=== PATIENT | male | born 1995 | race Caucasian/White ===

== ENCOUNTER 2016-11-12 11:55 | Inpatient (IN) | payer MEDICAID, OTHER ==
[~2016-11-12] VITALS: Ht 185.4 cm; Wt 78.5 kg
[~2016-11-12 11:55] MED LIST: Z.0.NO CURRENT MEDS
[2016-11-12 12:04] VITALS: BP 119/74; PULSE 72; RESP 16; TEMP 98.6; O2SAT 100
--- NOTE | 2016-11-12 12:11 | PD ---
HPI Chief Complaint: CORBY ACTED BY [employer] Time Seen by Provider: 12:02 Travel History International Travel<30 days: No Contact w/Intl Traveler<30days: No History of Present Illness HPI PATIENT WAS BROUGHT IN BY [employer] POLICE, DUE TO PATIENT MAKING THREATS TO SLIT HIS THROAT AND THAT HE WANTED TO DO THAT LAST NIGHT AND AGAIN TODAY...CORBY ACTED BY PO POLICE [facility] Past Medical History ADHD: No Cancer: No Cardiovascular Problems: No Diabetes: No Migraines: No Seizures: No Thyroid Disease: No Ulcer: No Social History Alcohol Use: Yes Tobacco Use: Yes Substance Use: No (DENIES) Allergies-Medications (Allergen,Severity, Reaction): Coded Allergies: No Known Allergies (Unverified , 10/06/12) Reported Meds & Prescriptions Reported Meds & Active Scripts Active Reported No Current Meds (Miscellaneous Medication) Misc Review of Systems Except as stated in HPI: all other systems reviewed are Neg Psychiatric: Positive: Suicidal Ideations Physical Exam Narrative GENERAL: SKIN: Warm and dry. HEAD: Atraumatic. Normocephalic. EYES: Pupils equal and round. No scleral icterus. No injection or drainage. ENT: No nasal bleeding or discharge. Mucous membranes pink and moist. NECK: Trachea midline. No JVD. CARDIOVASCULAR: Regular rate and rhythm. RESPIRATORY: No accessory muscle use. Clear to auscultation. Breath sounds equal bilaterally. GASTROINTESTINAL: Abdomen soft, non-tender, nondistended. Hepatic and splenic margins not palpable. MUSCULOSKELETAL: Extremities without clubbing, cyanosis, or edema. No obvious deformities. NEUROLOGICAL: Awake and alert. No obvious cranial nerve deficits. Motor grossly within normal limits. Five out of 5 muscle strength in the arms and legs. Normal speech. PSYCHIATRIC: DEPRESSED MOOD, SI PRESENT Data Data Last Documented VS Vital Signs Date Time Temp Pulse Resp B/P Pulse Ox O2 Delivery O2 Flow Rate FiO2 11/12/16 12:04 98.6 72 16 119/74 100 Orders Complete Blood Count With Diff (11/12/16 12:03) Comprehensive Metabolic Panel (11/12/16 12:03) Electrocardiogram (11/12/16 12:03) Psych Screen (11/12/16 12:03) Drug Screen, Random Urine (11/12/16 12:03) Alcohol (Ethanol) (11/12/16 12:03) Salicylates (Aspirin) (11/12/16 12:03) Tylenol (Acetaminophen) (11/12/16 12:03) MDM Medical Decision Making Medical Screen Exam Complete: Yes Emergency Medical Condition: Yes Medical Record Reviewed: Yes Differential Diagnosis MED CLEARANCE Narrative Course PATIENT BROUGHT IN BY [employer] POLICE FOR MEDICAL CLEARANCE, OCRBY ACTED DUE TO SI WITH PLAN TO CUT THROAT Diagnosis Primary Impression: Medical clearance for psychiatric admission Marcos Oconnell MD November 12, 2016 12:11
[2016-11-12 12:42] LABS: AUTOMATED NEUTROPHIL # 3.1 TH/MM3 (1.8-7.7); BASOPHIL % 0.5 % (0.0-2.0); EOSINOPHIL % 0.5 % (0.0-4.0); HEMATOCRIT 45.1 % (39.0-51.0); HEMO FLAGS DIFF FINAL; LYMPH % 31.6 % (9.0-44.0); LYMPHOCYTE # 1.7 TH/MM3 (1.0-4.8); MEAN CELL VOLUME 88.1 FL (80.0-100.0); MEAN CORPUSCULAR HEMOGLOBIN 30.2 PG (27.0-34.0); MEAN CORPUSCULAR HGB CONC 34.3 % (32.0-36.0); MONO % 9.1 % (0.0-8.0); NEUT % 58.3 % (16.0-70.0); PLATELET COUNT 188 TH/MM3 (150-450); RED BLOOD COUNT 5.12 MIL/MM3 (4.50-5.90); RED CELL DISTRIBUTION WIDTH 13.4 % (11.6-17.2); WHITE BLOOD COUNT 5.4 TH/MM3 (4.0-11.0)
[2016-11-12 13:08] LABS: ALT (GPT) 15 U/L (12-78); ANION GAP 5 MEQ/L (5-15); AST (GOT) 11 U/L (15-37); BICARBONATE 27.1 MEQ/L (21.0-32.0); BLOOD UREA NITROGEN 8 MG/DL (7-18); CHLORIDE 107 MEQ/L (98-107); GLOMERULAR FILTRATION RATE 120 ML/MIN (>89); POTASSIUM 3.9 MEQ/L (3.5-5.1); SODIUM (NA) 139 MEQ/L (136-145)
[2016-11-12 13:10] LABS: ACETAMINOPHEN LESS THAN 2.0 MCG/ML (10.0-30.0); ALKALINE PHOSPHATASE 58 U/L (45-117); TOTAL BILIRUBIN ADULT 1.3 MG/DL (0.2-1.0)
[2016-11-12 14:50] LABS: AMPHETAMINE, URINE NEG (NEG); BARBITURATES, URINE NEG (NEG); COCAINE, URINE NEG (NEG)
[2016-11-12 18:56] VITALS: BP 117/69; PULSE 56; RESP 16; O2SAT 100
[2016-11-12 22:00] VITALS: BP 123/75; PULSE 67; RESP 18; TEMP 98.6; O2SAT 97
[2016-11-13 02:35] VITALS: BP 112/59; PULSE 71; RESP 18; TEMP 98.6; O2SAT 99
[2016-11-13 06:00] VITALS: BP 111/73; PULSE 50; RESP 18; O2SAT 98
[2016-11-13] MEDS ORDERED: MAGNESIUM HYDROXIDE SUSP 30 ML CUP PO PRN ×2 (09:00→14:30)
[2016-11-13] MEDS ORDERED: LORazepam 1 MG TAB PO PRN (09:00)
[2016-11-13] MEDS ORDERED: ACETAMINOPHEN 325 MG TAB PO PRN ×2 (09:00→14:30)
[2016-11-13] MEDS ORDERED: LORazepam 2 MG/ML VIAL IM PRN ×2 (09:00)
[2016-11-13] MEDS ORDERED: LORazepam 0.5 MG TAB PO PRN (09:00)
[2016-11-13] MEDS: NICOTINE 21 MG/24 HR PATCH T-DERMAL SCH (09:00)
[2016-11-13] MEDS ORDERED: ALUMINUM/MAGNESIUM/SIMETH 30 ML CUP PO PRN ×2 (09:00→14:30)
[2016-11-13 10:43] VITALS: BP 119/64; PULSE 65; RESP 18
[2016-11-13 10:51] VITALS: BP 125/69; PULSE 64; RESP 18; TEMP 98.2; O2SAT 97
[2016-11-13 11:25] VITALS: BP 119/64; TEMP 98
--- NOTE | 2016-11-13 14:46 | HHI.HP ---
Provisional Diagnosis Admission Date November 13, 2016 at 09:06 [place] I. Paranoid schizophrenia F 20.0 Certification of Person's Competence To Provide Express and Informed Consent I have personally examined Sartahk Washburn , a person being served at [facility] on, November 13, 2016 14:34. Express and informed consent means consent voluntarily given in writing, by a competent person, after sufficient explanation and disclosure of the subject matter involved to enable the person to make a knowing and willful decision without any element of force, fraud, deceit, duress, or other form of constraint or coercion. This person is 18 years of age or older, is not now known to be incompetent to consent to treatment with a guardian advocate, and does not have a health care surrogate or proxy currently making medical treatment decisions. I have found this person to be one of the following: [] Competent to provide express and informed consent, as defined above, for voluntary admission to this facility and is competent to provide express and informed consent for treatment. He/she has the consistent capacity to make well reasoned, willful, and knowing decisions concerning his or her medical or mental health treatment. The person fully and consistently understands the purpose of the admission for examination/placement and is fully capable of personally exercising all rights assured under [place] Incompetent to provide express and informed consent to voluntary admission , and this is incompetent to provide express and informed consent to treatment. The person must be transferred to involuntary status and a petition for a guardian advocate filed with the Circuit Court. [] Refusing to provide express and informed consent to voluntary admission but is competent to provide express and informed consent for treatment. The person must be discharged or transferred to involuntary status. Form shall be completed within 24 hours of a person's arrival at the receiving facility and filed in the clinical record of each person: 1. Admitted on a voluntary basis 2. Permitted to provide express and informed consent to his/her own treatment 3. Allowed to transfer from involuntary to voluntary status 4. Prior to permitting a person to consent to his or her own treatment after having been previously found incompetent to consent to treatment. History of Present Illness Capacity: Lacks Capacity HPI Patient 21-year-old male comes here under [place] act by the [facility] [employer] dated 11/12/16 11:25 AM that report reviewed and agreed with initially stating that the patient advised that he wanted to slit his throat told the police detention attendant that he could do it and that he said he could do it last night. Patient seen screened in the ED urine toxicology positive for benzodiazepines. At the present time patient sitting quietly and the day room 2700 nurse Leny present throughout session. Patient called somewhat solidly built male appears about his stated age slowly stirring a melting dish of ice cream. Stating he doesn't know why he is here there is marked thought blocking noted patient's responses are markedly delayed as if responding to internal stimuli. He does reluctantly acknowledge auditory hallucinations of a somewhat threatening scary nature. Patient is vague about past psychiatric history of though he states he did see a psychiatrist and may have been hospitalized in [place] while staying with his mother there. He stated he had been on the Respinol in the past been off of for at least a few weeks or longer. Also of interest patient was seen at this facility by Dr. Ornelas in 2012 then diagnosis of intermittent explosive disorder. Patient denies any alcohol or drug use related to this. Is vague about suicidality denies homicidality. States he lives with his father and his brother and is somewhat conflictual relationship. He also states he just finished 11th grade does not have a GED, denies any physical or sexual abuse. Is vague about mental health issues in his family origin. Denies any medical or surgical problems. At the present time patient meets criteria for involuntary psychiatric hospitalization of the [place] act. I also feel he does not have capacity to sign for the medications thus I'll do a health care surrogate and guardian advocate we will order Resporal 1 mg twice a day to be given with permission of health care surrogate. Will attempt to meet with patient's family for further treatment. Further information about the segment and to start making plans for discharge and referral of the community Review of Systems Constitutional: DENIES: Diaphoretic episodes, Fatigue, Fever, Weight gain, Weight loss, Chills, Dizziness, Change in appetite, Night Sweats Endocrine: DENIES: Heat/cold intolerance, Polydipsia, Polyuria, Polyphagia Eyes: DENIES: Blurred vision, Diplopia, Eye inflammation, Eye pain, Vision loss , Photosensitivity, Double Vision Ears, nose, mouth, throat: DENIES: Tinnitus, Hearing loss, Vertigo, Nasal discharge, Oral lesions, Throat pain, Hoarseness, Ear Pain, Running Nose, Epistaxis, Sinus Pain, Toothache, Odynophagia Respiratory: DENIES: Apneas, Cough, Snoring, Wheezing, Hemoptysis, Sputum production, Shortness of breath Cardiovascular: DENIES: Chest pain, Palpitations, Syncope, Dyspnea on Exertion , PND, Lower Extremity Edema, Orthopnea, Claudication Gastrointestinal: DENIES: Abdominal pain, Black stools, Bloody stools, Constipation, Diarrhea, Nausea, Vomiting, Difficulty Swallowing, Anorexia Genitourinary: DENIES: Sexual dysfunction, Urinary frequency, Urinary incontinence, Urgency, Hematuria, Dysuria, Nocturia, Penile Discharge, Testicular Pain, Testicular Swelling Musculoskeletal: DENIES: Joint pain, Muscle aches, Stiffness, Joint Swelling, Back pain, Neck pain Integumentary: DENIES: Abnormal pigmentation, Nail changes, Pruritus, Rash Hematologic/lymphatic: DENIES: Bruising, Lymphadenopathy Immunologic/allergic: DENIES: Eczema, Urticaria Neurologic: DENIES: Abnormal gait, Headache, Localized weakness, Paresthesias, Seizures, Speech Problems, Tremor, Poor Balance Psychiatric: COMPLAINS OF: Hallucinations, Suicidal Ideation Past Psych History Psychological trauma history Patient denies Violence risk - others (6 mos) Low Violence risk - self (6 mos) Threatening cut throat Substance Abuse History Drugs/Alcohol past 12 months Denies Past Family Social History Coded Allergies: No Known Allergies (Unverified , 10/06/12) Reported Medications Miscellaneous (No Current Meds) Misc 10/07/12 Current Medications Medications (Trade) Dose Ordered Sig/Omkar Route Start Time Stop Time Status Last Admin (Ativan) 1 mg Q6H PRN PO 11/13/16 09:00 (Ativan Inj) 1 mg Q6H PRN IM 11/13/16 09:00 (Tylenol) 650 mg Q4H PRN PO 11/13/16 09:00 (Milk Of Magnesia Liq) 30 ml DAILY PRN PO 11/13/16 09:00 (Mag-Al Plus Susp Liq) 30 ml Q6H PRN PO 11/13/16 09:00 (Habitrol 21 Mg Patch.24 Hr) 1 patch DAILY T-DERMAL 11/13/16 09:00 11/13/16 09:00 (risperDAL) 1 mg Q12HR PO 11/13/16 21:00 Miscellaneous Information 1 HS T-DERMAL 11/13/16 21:00 (Tylenol) 650 mg Q4H PRN PO 11/13/16 14:30 UNV (Milk Of Magnesia Liq) 30 ml DAILY PRN PO 11/13/16 14:30 UNV (Mag-Al Plus Susp Liq) 30 ml Q6H PRN PO 11/13/16 14:30 UNV Family History Denies mental health issues and family Social History Lives with father and brother Patient's Strengths (min. 2) Patient verbal [facility] appears cooperative Physical Exam Patient seen screened in ED exam reviewed and agreed with. Patient sitting calmly in the dayroom in no acute distress start his sclerae neck is supple there is no respiratory distress, heart normal sounds, abdomen soft flow range of motion all 4 extremities Vital Signs Vital Signs Date Time Temp Pulse Resp B/P Pulse Ox O2 Delivery O2 Flow Rate FiO2 11/13/16 11:25 98.0 65 18 119/64 98 11/13/16 10:43 Room Air Mental Status Examination Alert oriented 21-year-old male appears about stated age sitting calmly in the day room. He appears though somewhat anxious distracted with mild psychomotor retardation, poor eye contact responses are is also marked thought blocking Appearance Fairly clean and neat Speech: Hesitant, Slow, Circumstantial, Tangential, Other Orientation: x3 Memory: Unremarkable (poor) Thought Process: Linear Thought Content: Paranoid Language Poor Fund of Knowledge Poor Hallucination Type: Auditory (somewhat commanding and disturbing) Attention and Concentration: Other (poor) Suicidal Ideation: Yes (threatening to cut throat) Previous Suicide Attempts: No (vaguely denied) Homicidal Ideation: No Previous Homicide Attempts: No Insight: Poor Judgment: Poor Affect: Other (decreased range and intensity) Mood: Other (restricted) Motor Activity: Normal gait Assessment & Plan Problem List: (1) Paranoid schizophrenia ICD Code: F20.0 Assessment & Plan Estimated LOS: 3-5 days patient quite psychotic, does meet criteria for involuntary psychiatric hospitalization I'll do first opinion because second opinion I also asked for healthcare surrogate and guardian advocate. We'll start Respinol 1 mg twice a day Discharge Planning To be determined Request HC Surrog/Guard Advoc?: Yes Desmond Torres MD November 13, 2016 14:46
[2016-11-13 18:24] VITALS: BP 125/64; PULSE 60; RESP 16; TEMP 98.3; O2SAT 97
[2016-11-13] MEDS: REMOVE OLD NICODERM (NICOTINE) PATCH T-DERMAL SCH (20:16)
--- NOTE | 2016-11-13 21:58 | EKG ---
Date Performed: 11/12/2016 Time Performed: 12:11:50 PTAGE: 21 years EKG: Sinus rhythm WITH SINUS ARRHYTHMIA NORMAL ECG PREVIOUS TRACING : 10/07/2012 10.01 Compared to prior tracing no significant change DOCTOR: Kvng Barrera Interpretating Date/Time 11/13/2016 21:57:14
[2016-11-14 06:15] VITALS: BP 107/55; PULSE 53; RESP 17; TEMP 98.2; O2SAT 99
[2016-11-14] MEDS: NICOTINE 21 MG/24 HR PATCH T-DERMAL SCH (08:53)
[2016-11-14 09:04] LABS: ANION GAP 8 MEQ/L (5-15); BICARBONATE 27.6 MEQ/L (21.0-32.0); BLOOD UREA NITROGEN 10 MG/DL (7-18); CHLORIDE 105 MEQ/L (98-107); GLOMERULAR FILTRATION RATE 101 ML/MIN (>89); HDL CHOLESTEROL 48.5 MG/DL (40.0-60.0); LDL CHOLESTEROL 43 MG/DL (0-99); SODIUM (NA) 141 MEQ/L (136-145)
[2016-11-14 13:38] LABS: HEMOGLOBIN A1b 1.4 %; HEMOGLOBIN Ao 86.9 %; HEMOGLOBIN LA1C 1.8 %; HEMOGLOBIN P3 3.3 %
--- NOTE | 2016-11-14 14:59 | HHI.PYPN ---
Subjective Remarks Patient was seen and case discussed with nursing. Patient is pleasant and cooperative with exam. He does appear shy and slightly disorganized. He has poor insight into his admission giving a convoluted story. Not on any medications at this time pending consent. There is no evidence of withdrawal off of Klonopin but we will continue to monitor his vital signs. Denies auditory visual hallucinations. Denies suicidal ideation intent or plan Objective Alert: Yes [place]: Person, Place Mood: Depressed Affect: Other (shy) Memory Intact: Immediate (not tested) Hallucinations: Auditory (denies) Delusions: No Delusion Type: Other (none elicited) Suicidal: Ideation (denies) Homicidal: Ideation (denies) Insight/Judgment Poor Labs Test 11/14/16 08:01 Sodium Level 141 MEQ/L Potassium Level 4.0 MEQ/L Chloride Level 105 MEQ/L Carbon Dioxide Level 27.6 MEQ/L Anion Gap 8 MEQ/L Blood Urea Nitrogen 10 MG/DL Creatinine 0.94 MG/DL Estimat Glomerular Filtration 101 ML/MIN Rate Random Glucose 87 MG/DL Hemoglobin A1c 5.1 % Calcium Level 9.0 MG/DL Triglycerides Level 27 MG/DL Cholesterol Level 97 MG/DL LDL Cholesterol 43 MG/DL HDL Cholesterol 48.5 MG/DL Cholesterol/HDL Ratio 2.00 RATIO Vitals/IOs Vital Signs Date Time Temp Pulse Resp B/P Pulse Ox O2 Delivery O2 Flow Rate FiO2 11/14/16 06:15 98.2 53 17 107/55 99 11/13/16 10:43 Room Air Assessment & Plan Problem List: (1) Paranoid schizophrenia ICD Code: F20.0 Assessment & Plan Continue current treatment plan Justification for Cont. Inpt. Patient will decompensate in a less restrictive setting Request HC Surrog/Guard Advoc?: Yes Bishop Langford DO November 14, 2016 14:59
[2016-11-14 18:15] VITALS: BP 142/82; PULSE 67; RESP 17; TEMP 98.2; O2SAT 100
[2016-11-14] MEDS: REMOVE OLD NICODERM (NICOTINE) PATCH T-DERMAL SCH (21:00)
[2016-11-15 06:30] VITALS: BP 136/80; PULSE 67; RESP 17; TEMP 98.4; O2SAT 95
[2016-11-15] MEDS: risperiDONE 1 MG TAB PO SCH ×2 (08:52→20:30)
[2016-11-15] MEDS: NICOTINE 21 MG/24 HR PATCH T-DERMAL SCH (09:00)
--- NOTE | 2016-11-15 15:32 | HHI.PYPN ---
Subjective Remarks Patient was seen and case discussed with nursing. Patient is pleasant and cooperative with exam. He says he is just going through the paces so he can be discharged in a timely manner. Patient denies a psychiatric issue before this incident. Continues to have poor insight and refuses to acknowledge that he made statements that he wanted to slit his throat. His compliant with his medications. Keeps to himself. Denies suicidal ideations or plan Objective Alert: Yes [place]: Person, Place Mood: Depressed Affect: Restricted Memory Intact: Immediate (not tested) Hallucinations: Auditory (denies) Delusions: No Delusion Type: Other (none elicited) Suicidal: Ideation (denies) Homicidal: Ideation (denies) Insight/Judgment Poor Vitals/IOs Vital Signs Date Time Temp Pulse Resp B/P Pulse Ox O2 Delivery O2 Flow Rate FiO2 11/15/16 06:30 98.4 67 17 136/80 95 11/13/16 10:43 Room Air Assessment & Plan Problem List: (1) Paranoid schizophrenia ICD Code: F20.0 Assessment & Plan Continue current treatment plan Justification for Cont. Inpt. Patient will decompensate in a less restrictive setting Request HC Surrog/Guard Advoc?: Yes Bishop Langford DO November 15, 2016 15:32
[2016-11-15 20:08] VITALS: BP 116/71; PULSE 73; RESP 18; TEMP 97.5; O2SAT 99
[2016-11-15] MEDS: REMOVE OLD NICODERM (NICOTINE) PATCH T-DERMAL SCH (20:31)
[2016-11-16 06:10] VITALS: BP 111/67; PULSE 56; RESP 17; TEMP 97.2; O2SAT 98
[2016-11-16] MEDS: NICOTINE 21 MG/24 HR PATCH T-DERMAL SCH (08:39)
[2016-11-16] MEDS: risperiDONE 1 MG TAB PO SCH ×2 (08:39→20:13)
--- NOTE | 2016-11-16 17:48 | HHI.PYPN ---
Subjective Remarks Patient seen in [place] with nurse Eliel, patient calm. A little bit vigilant and anxious asking about discharge. He denies suicidality homicidality. I question his veracity his real insight into his mental health issues. For now continue treatment Review of Systems Except as stated in HPI: all other systems reviewed are Neg Objective Alert: Yes [place]: Person, Place Mood: Depressed Affect: Restricted Memory Intact: Immediate (not tested) Hallucinations: Auditory (denies) Delusions: No Delusion Type: Other (none elicited) Suicidal: Ideation (denies) Homicidal: Ideation (denies) Insight/Judgment Poor Vitals/IOs Vital Signs Date Time Temp Pulse Resp B/P Pulse Ox O2 Delivery O2 Flow Rate FiO2 11/16/16 06:10 97.2 56 17 111/67 98 11/13/16 10:43 Room Air Assessment & Plan Problem List: (1) Paranoid schizophrenia ICD Code: F20.0 Assessment & Plan Estimated LOS: days patient less psychotic though still showing little insight , compliant medications for now continue treatment Justification for Cont. Inpt. At this time patient decompensate placed a lower level of care Discharge Planning To be determined Request HC Surrog/Guard Advoc?: Yes Desmond Torres MD November 16, 2016 17:48
[2016-11-16 19:07] VITALS: BP 111/71; PULSE 71; RESP 18; TEMP 97.9; O2SAT 96
[2016-11-16] MEDS: REMOVE OLD NICODERM (NICOTINE) PATCH T-DERMAL SCH (20:13)
[2016-11-17 05:47] VITALS: BP 138/100; PULSE 76; RESP 18; TEMP 97.8; O2SAT 100
[2016-11-17] MEDS: risperiDONE 1 MG TAB PO SCH ×2 (08:59→20:22)
[2016-11-17] MEDS: NICOTINE 21 MG/24 HR PATCH T-DERMAL SCH (08:59)
--- NOTE | 2016-11-17 09:54 | HHI.PYPN ---
Subjective Remarks Patient seen in [place] with counselor Chon, chart review, patient remains somewhat benign with no significant behavioral problems. Ears showing no insight into his disease. We did discuss medications and discharge plans he is quite vague about room be stating perhaps an extended family. However feel that with the patient's history of questionable compliance medication is a long- acting injectable is indicated. Patient showing reluctance to taking any kind of a long-acting injection [place] after discussing its benefits. However this time I feel patient may benefit will offer him to 34 mg iinvega sustena today. We will also have counselor attempt to contact patient's family to get their cooperation with this. Review of Systems Except as stated in HPI: all other systems reviewed are Neg Objective Alert: Yes [place]: Person, Place Mood: Depressed Affect: Restricted Memory Intact: Immediate (not tested) Hallucinations: Auditory (denies) Delusions: No Delusion Type: Other (none elicited) Suicidal: Ideation (denies) Homicidal: Ideation (denies) Insight/Judgment Poor Vitals/IOs Vital Signs Date Time Temp Pulse Resp B/P Pulse Ox O2 Delivery O2 Flow Rate FiO2 11/17/16 05:47 97.8 76 18 138/100 100 11/13/16 10:43 Room Air Assessment & Plan Problem List: (1) Paranoid schizophrenia ICD Code: F20.0 Assessment & Plan Estimated LOS: days patient remains paranoid and vigilant, currently mixed compliance with medication and recommendations treatment team. Will offer him monthly injection, will also attempt to get family's support to encourage him to be compliant. Above this I feel patient has a high risk of decompensating and noncompliance with medication Justification for Cont. Inpt. At this time I feel patient will decompensate placed in a lower level of care Discharge Planning To be determined Request HC Surrog/Guard Advoc?: Yes Desmond Torres MD November 17, 2016 09:54
[2016-11-17] MEDS ORDERED: PALIPERIDONE PALMITATE 234 MG/1.5 ML SYRINGE IM ONE (10:00)
[2016-11-17 17:55] VITALS: BP 129/81; PULSE 85; RESP 18; TEMP 98.3; O2SAT 100
[2016-11-17] MEDS: REMOVE OLD NICODERM (NICOTINE) PATCH T-DERMAL SCH (20:23)
[2016-11-18 04:59] VITALS: BP 116/56; PULSE 62; RESP 18; TEMP 97.9; O2SAT 100
[2016-11-18] MEDS: NICOTINE 21 MG/24 HR PATCH T-DERMAL SCH (09:00)
[2016-11-18] MEDS: risperiDONE 1 MG TAB PO SCH ×2 (09:21→21:00)
--- NOTE | 2016-11-18 11:24 | HHI.PYPN ---
Subjective Remarks Patient seen in his room with nurse Renetta, patient continues to deny mental illness, denying need for medication. Continues to appear to be distracted as if responding to internal stimuli. Patient is compliant with medications at this time. For now continue treatment. Patient scheduled for [place] [employer] tomorrow Review of Systems Except as stated in HPI: all other systems reviewed are Neg Objective Alert: Yes [place]: Person, Place Mood: Depressed Affect: Restricted Memory Intact: Immediate (not tested) Hallucinations: Auditory (denies) Delusions: No Delusion Type: Other (none elicited) Suicidal: Ideation (denies) Homicidal: Ideation (denies) Insight/Judgment Very poor Vitals/IOs Vital Signs Date Time Temp Pulse Resp B/P Pulse Ox O2 Delivery O2 Flow Rate FiO2 11/18/16 04:59 97.9 62 18 116/56 100 Intake and Output 11/17/16 11/17/16 11/18/16 08:00 16:00 00:00 Intake Total 480 ml Balance 480 ml Assessment & Plan Problem List: (1) Paranoid schizophrenia ICD Code: F20.0 Assessment & Plan Estimated LOS: days patient continues psychotic delusional no insight into disease than on the willingness to be compliant with medications after discharge Justification for Cont. Inpt. With this time patient decompensate if placed in a lower level of care Discharge Planning To be determined Request HC Surrog/Guard Advoc?: Yes Desmond Torres MD November 18, 2016 11:24
[2016-11-18 18:03] VITALS: BP 132/69; PULSE 84; RESP 18; TEMP 98.6; O2SAT 97
[2016-11-18] MEDS: REMOVE OLD NICODERM (NICOTINE) PATCH T-DERMAL SCH (21:00)
[2016-11-19 05:38] VITALS: BP 137/74; PULSE 75; RESP 16; TEMP 98.6; O2SAT 98
[2016-11-19] MEDS: risperiDONE 1 MG TAB PO SCH ×2 (08:26→09:00)
[2016-11-19] MEDS: NICOTINE 21 MG/24 HR PATCH T-DERMAL SCH (09:00)
[2016-11-19] MEDS ORDERED: risperiDONE PO (11:18)
--- NOTE | 2016-11-19 11:24 | HHI.DS ---
Psychiatry Discharge Summary Inpatient Psychiatric care?: Yes Advance Directive: No Mental Health AdvanceDirective: No Health Care Proxy: No Admission Admission Date November 13, 2016 at 09:06 Admission Diagnosis: (1) Paranoid schizophrenia ICD Code: F20.0 Brief History Patient 21-year-old male comes here under [facility]in act by the [place] [employer] dated 11/12/16 11:25 AM that report reviewed and agreed with initially stating that the patient advised that he wanted to slit his throat told the police crime scene technician that he could do it and that he said he could do it last night. Patient seen screened in the ED urine toxicology positive for benzodiazepines. At the present time patient sitting quietly and the day room [id number] nurse Leny present throughout session. Patient called somewhat solidly built male appears about his stated age slowly stirring a melting dish of ice cream. Stating he doesn't know why he is here there is marked thought blocking noted patient's responses are markedly delayed as if responding to internal stimuli. He does reluctantly acknowledge auditory hallucinations of a somewhat threatening scary nature. Patient is vague about past psychiatric history of though he states he did see a psychiatrist and may have been hospitalized in [place] while staying with his mother there. He stated he had been on the Respinol in the past been off of for at least a few weeks or longer. Also of interest patient was seen at this facility by Dr. Ornelas in 2013 then diagnosis of intermittent explosive disorder. Patient denies any alcohol or drug use related to this. Is vague about suicidality denies homicidality. States he lives with his father and his brother and is somewhat conflictual relationship. He also states he just finished 11th grade does not have a GED, denies any physical or sexual abuse. Is vague about mental health issues in his family origin. Denies any medical or surgical problems. At the present time patient meets criteria for involuntary psychiatric hospitalization of the Faustin act. I also feel he does not have capacity to sign for the medications thus I'll do a health care surrogate and guardian advocate we will order Resporal 1 mg twice a day to be given with permission of health care surrogate. Will attempt to meet with patient's family for further treatment. Further information about the segment and to start making plans for discharge and referral of the community Tobacco Use In Past 30 Days: No Tobacco Past 30 Days Alcohol Use: Never Hospital Course Patient seen in [place] court today. Patient order to be released by [employer]. Patient was calm during the hearing though showed marked decrease range of motion intensity was affect the point of being blunted. With encouragement from the municipal court judge he acknowledged a willingness to take his medications in the community. However he refuses medications on the unit today. Mini-Mental at this time I will discharge patient per the court order. Patient gives 1 month supply medications and recommended follow-up through [facility] act. He does denies suicidality homicidality or voices to me at this time Results Blood Pressure 137 / 74 Vital Signs Date Time Temp Pulse Resp B/P Pulse Ox O2 Delivery O2 Flow Rate FiO2 11/19/16 05:38 98.6 75 16 137/74 98 Urine toxicology positive for benzodiazepines Summary of Procedures None done Pending results at discharge: No Medications # of Antipsychotic meds at D/C: 1 Approp Antipsych med options 1 - Minimum of three failed multiple trials of monotherapy. 2 - Documented plan to taper to monotherapy due to previous use of multiple meds OR cross-taper in progress at D/C. 3 - Documentation of augmentation of Clozapine. 4 - Justification other than those listed in allowable values 1-3, document here : Discharge Discharge Date: November 19, 2016 Discharge Diagnosis: (1) Paranoid schizophrenia Diagnosis: Principal ICD Code: F20.0 Mental Status Exam at Disch Alert male, is normal active to slightly hypoactive, his mood is restricted with a marked decrease range of motion intensity to the point of being blunted. Speech rate and rhythm is somewhat delayed brief somewhat tangential. There are no auditory or visual hallucinations noted that time she appears to be responding to internal stimuli. No delusions noted insight and judgment is poor cognition appears grossly intact Pt Condition on Discharge: Guarded Discharge Disposition: Discharge Home Discharge Instructions Diet Instructions: As Tolerated, No Restrictions Activities you can perform: Regular-No Restrictions Scheduled Appointment: [facility] Appointment Date: November 20, 2016 Appointment Time: 7:45am Discharge Time > 30 minutes Discharge/Advance Care Plan Health Problems: (1) Paranoid schizophrenia Goals to promote your health * To prevent worsening of your condition and complications * To maintain your health at the optimal level Directions to meet your goals Take your medications as prescribed Follow your dietary instruction Follow activity as directed Keep your appointments as scheduled Take your immunizations and boosters as scheduled If your symptoms worsen call your PCP, if no PCP go to Urgent Care Center or Emergency Room For 18/01 questions related to your inpatient stay or results of tests pending at discharge, please contact Dr. Desmond Torres at Smoking is Dangerous to Your Health. Avoid second hand smoking Desmond Torres MD November 19, 2016 11:24
== END 2016-11-19 13:35 | disposition home or self-care (01) | DRG 885 ==
LOC: NEPE 11:55 → NEDA 11-13 09:06 → H270 11-13 10:40 → H260 11-17 10:50
PROVIDERS: ADMIT Psychiatry & Neurology Psychiatry; ATTEND Psychiatry & Neurology Psychiatry
DX: F20.0 Paranoid schizophrenia (principal); Z72.0 Tobacco use
CPT/HCPCS: 80048; 80053; 80061; 80307; 83036; 85025; 93005; J2426

== ENCOUNTER 2016-11-22 16:56 | Emergency (ER) | payer OTHER ==
[~2016-11-22] VITALS: Ht 185.4 cm; Wt 100.0 kg
[~2016-11-22 16:56] MED LIST changes: +risperiDONE PO
[2016-11-22 17:08] VITALS: BP 143/78; PULSE 99; RESP 20; TEMP 100.4; O2SAT 99
[2016-11-22 17:13] VITALS: BP 143/78; PULSE 99; RESP 20; TEMP 100.4
--- NOTE | 2016-11-22 17:36 | PD ---
HPI Chief Complaint: Psychiatric Symptoms Time Seen by Provider: 17:32 Travel History International Travel<30 days: No Contact w/Intl Traveler<30days: No Traveled to known affect area: No History of Present Illness HPI 21-year-old male with PMH of schizophrenia presents to the ED under [facility]in act from [facility]. According to [facility] paperwork the patient was in an argument with his father and stated that he would cut his throat. On presentation the patient denies making the statement. He denies suicidal or homicidal ideation. He is very vague in his statements and does not confirm that he is aware of his schizophrenia diagnosis. He denies that he's ever been hospitalized for psychiatric reasons but then alternately says that his mom diagnosed him with schizophrenia. He denies auditory or visual hallucinations. He denies somatic complaints. He endorses compliance with his psychiatric medications. PFSH Past Medical History ADHD: No Cancer: No Cardiovascular Problems: No Diabetes: No Psychiatric: Yes (Hx of treatment for mood disorder) Migraines: No Schizophrenia: Yes (paranoid) Seizures: No Thyroid Disease: No Ulcer: No Past Surgical History Surgical History: No Previous Surgery Other Surgery: No Social History Alcohol Use: Yes Tobacco Use: Yes Substance Use: No Allergies-Medications (Allergen,Severity, Reaction): Coded Allergies: No Known Allergies (Unverified , 10/06/12) Reported Meds & Prescriptions Reported Meds & Active Scripts Active [risperiDONE] 1 MG Tab 1 Mg PO BID Review of Systems Except as stated in HPI: all other systems reviewed are Neg Physical Exam Narrative GENERAL: Well-nourished, well-developed white male in no acute distress. PSYCHIATRIC: Avoids eye contact, vague when answering questions. SKIN: Focused skin assessment warm/dry. Multiple tattoos HEAD: Normocephalic. EYES: No scleral icterus. No injection or drainage. NECK: Supple, trachea midline. No JVD or lymphadenopathy. CARDIOVASCULAR: Regular rate and rhythm without murmurs, gallops, or rubs. RESPIRATORY: Breath sounds clear and equal bilaterally. No accessory muscle use. GASTROINTESTINAL: Abdomen soft, non-tender, nondistended. Active bowel sounds MUSCULOSKELETAL: No cyanosis, or edema. Patient demonstrates a normal gait, moves extremities spontaneously. BACK: Nontender without obvious deformity. No CVA tenderness. Data Data Last Documented VS Vital Signs Date Time Temp Pulse Resp B/P Pulse Ox O2 Delivery O2 Flow Rate FiO2 11/22/16 18:40 99.0 11/22/16 17:13 99 20 143/78 Room Air 11/22/16 17:08 99 Orders Complete Blood Count With Diff (11/22/16 17:23) Comprehensive Metabolic Panel (11/22/16 17:23) Urinalysis - C+S If Indicated (11/22/16 17:23) Oximetry (11/22/16 17:23) Iv Access Insert/Monitor (11/22/16 17:23) Ecg Monitoring (11/22/16 17:23) Psych Screen (11/22/16 17:23) Drug Screen, Random Urine (11/22/16 17:23) Alcohol (Ethanol) (11/22/16 17:23) Lactic Acid Sepsis Protocol (11/22/16 17:23) Blood Culture (11/22/16 17:23) Sodium Chlor 0.9% 1000 Ml Inj (Ns 1000 M (11/22/16 17:45) Labs Laboratory Tests Test 11/22/16 11/22/16 17:15 17:40 White Blood Count 6.0 TH/MM3 Red Blood Count 4.72 MIL/MM3 Hemoglobin 14.4 GM/DL Hematocrit 41.8 % Mean Corpuscular Volume 88.5 FL Mean Corpuscular Hemoglobin 30.6 PG Mean Corpuscular Hemoglobin 34.6 % Concent Red Cell Distribution Width 13.2 % Platelet Count 160 TH/MM3 Mean Platelet Volume 9.6 FL Neutrophils (%) (Auto) 51.3 % Lymphocytes (%) (Auto) 38.9 % Monocytes (%) (Auto) 8.4 % Eosinophils (%) (Auto) 1.0 % Basophils (%) (Auto) 0.4 % Neutrophils # (Auto) 3.1 TH/MM3 Lymphocytes # (Auto) 2.3 TH/MM3 Monocytes # (Auto) 0.5 TH/MM3 Eosinophils # (Auto) 0.1 TH/MM3 Basophils # (Auto) 0.0 TH/MM3 CBC Comment DIFF FINAL Differential Comment Sodium Level 143 MEQ/L Potassium Level 3.7 MEQ/L Chloride Level 106 MEQ/L Carbon Dioxide Level 25.0 MEQ/L Anion Gap 12 MEQ/L Blood Urea Nitrogen 8 MG/DL Creatinine 0.81 MG/DL Estimat Glomerular Filtration 120 ML/MIN Rate Random Glucose 84 MG/DL Lactic Acid Level 1.7 mmol/L Calcium Level 8.7 MG/DL Total Bilirubin 0.5 MG/DL Aspartate Amino Transf 13 U/L (AST/SGOT) Alanine Aminotransferase 16 U/L (ALT/SGPT) Alkaline Phosphatase 62 U/L Total Protein 6.8 GM/DL Albumin 4.0 GM/DL Ethyl Alcohol Level LESS THAN 3 MG/DL Urine Color YELLOW Urine Turbidity CLEAR Urine pH 6.5 Urine Specific [place] 1.017 Urine Protein NEG mg/dL Urine Glucose (UA) NEG mg/dL Urine Ketones NEG mg/dL Urine Occult Blood NEG Urine Nitrite NEG Urine Bilirubin NEG Urine Urobilinogen 2.0 MG/DL Urine Leukocyte Esterase NEG Urine RBC LESS THAN 1 /hpf Urine WBC 1 /hpf Urine Mucus FEW /lpf Microscopic Urinalysis Comment CULT NOT INDICATED MDM Medical Decision Making Medical Screen Exam Complete: Yes Emergency Medical Condition: Yes Medical Record Reviewed: Yes (discharged from psychiatric unit 11/19.) Differential Diagnosis Adjustment disorder versus anxiety versus bipolar versus depression versus dementia versus electrolyte disorder versus malingering versus mood disorder versus ODD versus psychosis versus PTSD versus schizophrenia versus schizoaffective disorder versus substance-induced mood disorder versus other Narrative Course 21-year-old male with PMH of schizophrenia presents to the ED under Faustin act from [facility]. According to [employer] paperwork the patient was in an argument with his father and stated that he would cut his throat. On presentation the patient denies making the statement. He denies suicidal or homicidal ideation. He is very vague in answering questions. He denies that he' s ever been hospitalized or had a psychiatric illness but alternately states that his mom diagnosed him with schizophrenia. He denies auditory or visual hallucinations. He denies somatic complaints. He endorses compliance with his psychiatric medications. Patient is febrile and tachycardic on presentation. Physical exam is unremarkable. No concerning abnormalities of CBC, CMP, UA, lactic acid. Alcohol level less than 3. Patient is medically clear for psychiatric evaluation. Please see psychiatric notes for disposition. Kat Bucio November 22, 2016 17:36
[2016-11-22] MEDS ORDERED: SODIUM CHLOR 0.9% 1000 ML INJ 1,000 ML IV ONE (17:45)
[2016-11-22 17:48] LABS: AUTOMATED NEUTROPHIL # 3.1 TH/MM3 (1.8-7.7); BASOPHIL % 0.4 % (0.0-2.0); EOSINOPHIL # 0.1 TH/MM3 (0-0.4); HEMATOCRIT 41.8 % (39.0-51.0); HEMO FLAGS DIFF FINAL; LYMPH % 38.9 % (9.0-44.0); LYMPHOCYTE # 2.3 TH/MM3 (1.0-4.8); MEAN CELL VOLUME 88.5 FL (80.0-100.0); MEAN CORPUSCULAR HEMOGLOBIN 30.6 PG (27.0-34.0); MEAN CORPUSCULAR HGB CONC 34.6 % (32.0-36.0); MONO % 8.4 % (0.0-8.0); NEUT % 51.3 % (16.0-70.0); PLATELET COUNT 160 TH/MM3 (150-450); RED BLOOD COUNT 4.72 MIL/MM3 (4.50-5.90); RED CELL DISTRIBUTION WIDTH 13.2 % (11.6-17.2)
[2016-11-22 17:56] LABS: BLOOD, URINE NEG (NEG); COMMENT (UR) CULT NOT INDICATED; CULTURE IF INDICATED CULT NOT INDICATED; GLUCOSE,URINE NEG (NEG); KETONE, URINE NEG (NEG); MUCUS URINE FEW /lpf (OCC); NITRITE,URINE NEG (NEG); PH, URINE 6.5 (5.0-8.5); URINE COLOR YELLOW (YELLW/STRAW)
[2016-11-22 18:12] LABS: ALT (GPT) 16 U/L (12-78); ANION GAP 12 MEQ/L (5-15); AST (GOT) 13 U/L (15-37); BLOOD UREA NITROGEN 8 MG/DL (7-18); CHLORIDE 106 MEQ/L (98-107); GLOMERULAR FILTRATION RATE 120 ML/MIN (>89); POTASSIUM 3.7 MEQ/L (3.5-5.1); SODIUM (NA) 143 MEQ/L (136-145)
[2016-11-22 18:14] LABS: ALKALINE PHOSPHATASE 62 U/L (45-117); TOTAL BILIRUBIN ADULT 0.5 MG/DL (0.2-1.0)
[2016-11-22 18:40] VITALS: TEMP 99
--- NOTE | 2016-11-22 18:43 | PD ---
Data Data Last Documented VS Vital Signs Date Time Temp Pulse Resp B/P Pulse Ox O2 Delivery O2 Flow Rate FiO2 11/22/16 18:40 99.0 11/22/16 17:13 99 20 143/78 Room Air 11/22/16 17:08 99 Orders Complete Blood Count With Diff (11/22/16 17:23) Comprehensive Metabolic Panel (11/22/16 17:23) Urinalysis - C+S If Indicated (11/22/16 17:23) Oximetry (11/22/16 17:23) Iv Access Insert/Monitor (11/22/16 17:23) Ecg Monitoring (11/22/16 17:23) Psych Screen (11/22/16 17:23) Drug Screen, Random Urine (11/22/16 17:23) Alcohol (Ethanol) (11/22/16 17:23) Lactic Acid Sepsis Protocol (11/22/16 17:23) Blood Culture (11/22/16 17:23) Sodium Chlor 0.9% 1000 Ml Inj (Ns 1000 M (11/22/16 17:45) Labs Laboratory Tests Test 11/22/16 11/22/16 17:15 17:40 White Blood Count 6.0 TH/MM3 Red Blood Count 4.72 MIL/MM3 Hemoglobin 14.4 GM/DL Hematocrit 41.8 % Mean Corpuscular Volume 88.5 FL Mean Corpuscular Hemoglobin 30.6 PG Mean Corpuscular Hemoglobin 34.6 % Concent Red Cell Distribution Width 13.2 % Platelet Count 160 TH/MM3 Mean Platelet Volume 9.6 FL Neutrophils (%) (Auto) 51.3 % Lymphocytes (%) (Auto) 38.9 % Monocytes (%) (Auto) 8.4 % Eosinophils (%) (Auto) 1.0 % Basophils (%) (Auto) 0.4 % Neutrophils # (Auto) 3.1 TH/MM3 Lymphocytes # (Auto) 2.3 TH/MM3 Monocytes # (Auto) 0.5 TH/MM3 Eosinophils # (Auto) 0.1 TH/MM3 Basophils # (Auto) 0.0 TH/MM3 CBC Comment DIFF FINAL Differential Comment Sodium Level 143 MEQ/L Potassium Level 3.7 MEQ/L Chloride Level 106 MEQ/L Carbon Dioxide Level 25.0 MEQ/L Anion Gap 12 MEQ/L Blood Urea Nitrogen 8 MG/DL Creatinine 0.81 MG/DL Estimat Glomerular Filtration 120 ML/MIN Rate Random Glucose 84 MG/DL Lactic Acid Level 1.7 mmol/L Calcium Level 8.7 MG/DL Total Bilirubin 0.5 MG/DL Aspartate Amino Transf 13 U/L (AST/SGOT) Alanine Aminotransferase 16 U/L (ALT/SGPT) Alkaline Phosphatase 62 U/L Total Protein 6.8 GM/DL Albumin 4.0 GM/DL Ethyl Alcohol Level LESS THAN 3 MG/DL Urine Color YELLOW Urine Turbidity CLEAR Urine pH 6.5 Urine Specific [place] 1.017 Urine Protein NEG mg/dL Urine Glucose (UA) NEG mg/dL Urine Ketones NEG mg/dL Urine Occult Blood NEG Urine Nitrite NEG Urine Bilirubin NEG Urine Urobilinogen 2.0 MG/DL Urine Leukocyte Esterase NEG Urine RBC LESS THAN 1 /hpf Urine WBC 1 /hpf Urine Mucus FEW /lpf Microscopic Urinalysis Comment CULT NOT INDICATED MDM Supervised Visit with ADOLFO: Yes Narrative Course The history, exam, and medical decision-making in the associated midlevel provider note were completed with my assistance. I reviewed and agree with the findings presented. I attest that I had a [id number] encounter with the patient on the same day, and personally performed and documented my assessment and findings in the medical record. *My assessment and Findings: This is a 21-year-old male who has a documented history of paranoid schizophrenia who presents to the emergency department having been brought in by police for disorganized behavior. He did have a temperature of 100.4 with no localizing symptoms. On recheck it was 99.0. He has a normal white blood cell count. We went back and forth as to whether to consider encephalitis in this patient. It Does sound like he has prior documented history of psychiatric disease I think he can safely be medically cleared for psychiatric evaluation. Valarie Peguero MD November 22, 2016 18:43
[2016-11-22 20:42] LABS: AMPHETAMINE, URINE NEG (NEG); BARBITURATES, URINE NEG (NEG); COCAINE, URINE NEG (NEG)
[2016-11-22 21:19] VITALS: BP 135/82; PULSE 100; RESP 18; O2SAT 95
[2016-11-23 02:26] VITALS: BP 103/56; PULSE 75; RESP 18; O2SAT 98
[2016-11-23 04:30] VITALS: TEMP 97.8
== END 2016-11-23 05:51 ==
LOC: NEPC 16:56 → NEPJ 11-23 05:51
DX: F20.0 Paranoid schizophrenia (principal); R45.851 Suicidal ideations; R50.9 Fever, unspecified; R00.0 Tachycardia, unspecified; Z72.0 Tobacco use; Z86.59 Personal history of other mental and behavioral disorders
CPT/HCPCS: 80053; 80307; 81001; 83605; 85025; 87040; 96360; 99284; J7030